=== PATIENT | male | born 1990 | race Caucasian/White ===

== ENCOUNTER 2017-11-27 09:51 | Emergency (ER) | payer OTHER ==
[2017-11-27] MEDS ORDERED: NS 1,000 ML IV ONE (10:01)
[2017-11-27] MEDS ORDERED: ONDANSETRON 4 MG/2 ML VIAL IVP ONE ×2 (10:01→11:36)
[2017-11-27] MEDS ORDERED: KETAMINE 200 MG/20 ML VIAL IVP ONE (10:07)
--- NOTE | 2017-11-27 10:07 | EDPHY ---
H & P Time Seen by Provider: 11/27/17 10:00 HPI/ROS: CHIEF COMPLAINT: Right lower quadrant pain, vomiting HISTORY OF PRESENT ILLNESS: 26-year-old male presents with right lower quadrant pain and vomiting. Onset of nausea and vomiting 2 days ago, associated with gradually increasing right lower quadrant pain. The pain is now excruciating and persistent. He has also had a few episodes of loose stools. No known fever. No prior abdominal surgery. REVIEW OF SYSTEMS: Constitutional: No fever, no chills Eyes: No visual changes ENT: No sore throat Respiratory: No cough, no shortness of breath Cardiac: No chest pain Genitourinary: No hematuria, no dysuria Musculoskeletal: No leg pain or swelling Skin: No rash Neurological: No headache, no weakness Psychiatric: No anxiety Past Medical/Surgical History: Denies Social History: Incarcerated Smoking Status: Current every day smoker Physical Exam: General Appearance: Alert, pleasant, pale Eyes: Pupils equal and round, no conjunctival pallor or injection ENT, Mouth: Mucous membranes moist Neck: Normal inspection Respiratory: Lungs are clear to auscultation Cardiovascular: Regular rate and rhythm Gastrointestinal: Abdomen is soft, right lower quadrant tenderness Neurological: A&O, nonfocal, normal gait Skin: Warm and dry, no rash Extremities: Normal inspection Psychiatric: Mood and affect normal Constitutional: Initial Vital Signs Temperature (C) 36.8 C 11/27/17 09:54 Heart Rate 60 11/27/17 09:54 Respiratory Rate 14 11/27/17 09:54 Blood Pressure 121/78 H 11/27/17 09:54 O2 Sat (%) 93 11/27/17 09:54 O2 Delivery Mode Room Air Allergies/Adverse Reactions: No Known Allergies Allergy (Unverified 11/27/17 09:54) Home Medications: Medication Instructions Recorded Ondansetron Odt [Zofran Odt 4 mg 4 mg PO Q4 PRN #6 tab 11/27/17 (*)] Medical Decision Making - Diagnostics Imaging Results: Imaging Impressions Abdomen CT 11/27/17 10:05 Impression: 1. Equivocal bowel thickening, which could be related to enteritis, with trace free fluid. 2. Mild bladder wall thickening, most likely related to underdistention. 3. Small hiatal hernia. 4. Additional findings as above. Findings discussed with MISAEL TIM 11/27/2017 at 1143. ED Course/Re-evaluation: This patient presents with right lower quadrant pain and vomiting, concerning for acute appendicitis. CT scan of the abdomen pelvis ordered to rule out appendicitis. IV normal saline 1 L and Zofran 4 mg IV given. 11:45 a.m.-CT scan results per Dr. Leiva revealed no evidence of appendicitis. The patient has evidence of enteritis. Just vomited. Reglan 10 mg IV given. Toradol 15 mg IV given for pain. Patient feels better after these medications and would like to [facility] to the [facility] living. Abdominal exam remains benign. Abdominal pain precautions given. Differential Diagnosis: Differential diagnosis includes though it is not limited to appendicitis, cholecystitis, diverticulitis, pyelonephritis, bowel perforation, small bowel obstruction. - Data Points Laboratory Results: Laboratory Results 11/27/17 10:00 11/27/17 10:00 11/27/17 11/27/17 10:00 10:00 WBC 16.67 10^3/uL H 10^3/uL (3.80-9.50) RBC 6.19 10^6/uL 10^6/uL (4.40-6.38) Hgb 18.0 g/dL H g/dL (13.7-17.5) Hct 50.9 % % (40.0-51.0) MCV 82.2 fL fL (81.5-99.8) MCH 29.1 pg pg (27.9-34.1) MCHC 35.4 g/dL g/dL (32.4-36.7) RDW 13.0 % % (11.5-15.2) Plt Count 273 10^3/uL 10^3/uL (150-400) MPV 11.3 fL fL (8.7-11.7) Neut % (Auto) 80.4 % H % (39.3-74.2) Lymph % (Auto) 10.7 % L % (15.0-45.0) [place] % (Auto) 8.2 % % (4.5-13.0) Eos % (Auto) 0.0 % L % (0.6-7.6) Baso % (Auto) 0.2 % L % (0.3-1.7) Nucleat RBC Rel Count 0.0 % % (0.0-0.2) Absolute Neuts (auto) 13.40 10^3/uL H 10^3/uL (1.70-6.50) Absolute Lymphs (auto) 1.79 10^3/uL 10^3/uL (1.00-3.00) Absolute Monos (auto) 1.37 10^3/uL H 10^3/uL (0.30-0.80) Absolute Eos (auto) 0.00 10^3/uL L 10^3/uL (0.03-0.40) Absolute Basos (auto) 0.03 10^3/uL 10^3/uL (0.02-0.10) Absolute Nucleated RBC 0.00 10^3/uL 10^3/uL (0-0.01) Immature Gran % 0.5 % % (0.0-1.1) Immature Gran # 0.08 10^3/uL 10^3/uL (0.00-0.10) Sodium 140 mEq/L mEq/L (135-145) Potassium 3.3 mEq/L L mEq/L (3.5-5.2) Chloride 94 mEq/L L mEq/L (97-110) Carbon Dioxide 29 mEq/l mEq/l (22-31) Anion Gap 17 mEq/L H mEq/L (8-16) BUN 21 mg/dL mg/dL (7-23) Creatinine 1.0 mg/dL mg/dL (0.7-1.3) Estimated GFR > 60 Glucose 134 mg/dL H mg/dL (70-100) Calcium 9.8 mg/dL mg/dL (8.5-10.4) Medications Given: Discontinued Medications Sodium Chloride (Ns) 1,000 mls @ 0 mls/hr IV EDNOW ONE; Wide Open PRN Reason: Protocol Stop: 11/27/17 10:02 Last Admin: 11/27/17 10:09 Dose: 1,000 mls Ketamine HCl (Ketamine) 16.3 mg 0.2 mg/kg (16.3 mg) IVP EDNOW ONE Stop: 11/27/17 10:08 Last Admin: 11/27/17 10:14 Dose: 16.3 mg Ketorolac Tromethamine (Toradol) 15 mg IVP EDNOW ONE Stop: 11/27/17 12:08 Last Admin: 11/27/17 12:11 Dose: 15 mg Metoclopramide HCl (Reglan Injection) 10 mg IVP EDNOW ONE Stop: 11/27/17 11:44 Last Admin: 11/27/17 12:04 Dose: 10 mg Ondansetron HCl (Zofran) 4 mg IVP EDNOW ONE Stop: 11/27/17 10:02 Last Admin: 11/27/17 10:09 Dose: 4 mg Ondansetron HCl (Zofran) 4 mg IVP EDNOW ONE Stop: 11/27/17 11:37 Last Admin: 11/27/17 11:38 Dose: 4 mg Departure - Departure Disposition: Law Enforcement/Court/Halfway Clinical Impression: Acute gastroenteritis Abdominal pain Qualifiers: Abdominal location: right lower quadrant Qualified Code(s): R10.31 - Right lower quadrant pain Condition: Fair Instructions: Gastroenteritis (ED), Acute Abdominal Pain (ED) Additional Instructions: 1. Clear liquids for 24 hours. 2. Advance diet as tolerated. I suggest the BRAT diet to start: bananas, rice, applesauce and toast. 3. Return for worsening symptoms, persistent vomiting, abdominal pain, any concerns. Referrals: Shawn Caraballo DO [Doctor of Osteopathy] - As per Instructions Prescriptions: Ondansetron Odt [Zofran Odt 4 mg (*)] 4 mg PO Q4 PRN #6 tab PRN Reason: Nausea
[2017-11-27 10:14] LABS: PLATELET COUNT 273 10^3/uL (150-400)
[2017-11-27] MEDS ORDERED: IOPAMIDOL (ISOVUE-300) 100 ML BTL ONE (10:38)
[2017-11-27] MEDS ORDERED: METOCLOPRAMIDE 10 MG/2 ML VIAL IVP ONE (11:43)
[2017-11-27] MEDS ORDERED: KETOROLAC 15 MG/1 ML SDV IVP ONE (12:07)
[2017-11-27 13:05] VITALS: BP 112/66
== END 2017-11-27 13:03 ==
DX: K52.9 Noninfective gastroenteritis and colitis, unspecified (principal); F17.200 Nicotine dependence, unspecified, uncomplicated; E86.9 Volume depletion, unspecified
CPT/HCPCS: 96374; J1885; J2405; J2765; Q9967